=== PATIENT | female | born 1950 | race Caucasian/White ===

== ENCOUNTER 2020-03-03 11:15 | Day surgery (SDC) | payer MEDICARE ==
[~2020-03-03] VITALS: Ht 160 cm; Wt 105.7 kg
[2020-03-03 12:05] VITALS: BP 173/92
[2020-03-03] MEDS ORDERED: ZOLP10TA PO (12:16)
[2020-03-03] MEDS ORDERED: BIOT25005 PO (12:16)
[2020-03-03] MEDS ORDERED: FOLI-17 PO (12:16)
[2020-03-03] MEDS ORDERED: HYDR-3653 PO (12:16)
[2020-03-03] MEDS ORDERED: HYOS0.1282 PO (12:16)
[2020-03-03] MEDS ORDERED: CHOL10003 PO (12:16)
[2020-03-03] MEDS ORDERED: AZEL137S4 NAS (12:16)
[2020-03-03] MEDS ORDERED: LEVO137T3 PO (12:16)
[2020-03-03] MEDS ORDERED: BUSP15TA PO (12:16)
[2020-03-03] MEDS ORDERED: LOSA25TA25 PO (12:16)
[2020-03-03] MEDS ORDERED: FLUT1BLS INH (12:16)
[2020-03-03] MEDS ORDERED: CETI10TA76 PO (12:16)
[2020-03-03] MEDS ORDERED: ALBU8.5H8 INH (12:16)
[2020-03-03 12:30] LABS: ALANINE AMINOTRANSFERASE 27 U/L (12-78); ALBUMIN 4.3 g/dL (3.4-5.0); ANION GAP 5 mmol/L (5-15); CALCIUM 9.5 mg/dL (8.5-10.1); CHLORIDE 108 mmol/L (98-107); CREATININE 0.89 mg/dL (0.55-1.02)
[2020-03-03] MEDS ORDERED: CHLORHEXIDINE 15 ML UDC MM ONE (12:30)
[2020-03-03] MEDS ORDERED: LACTATED RINGERS 1,000 ML IV SCH (12:30)
[2020-03-03 12:32] LABS: ALKALINE PHOSPHATASE 109 U/L (45-117); BILIRUBIN,TOTAL 0.7 mg/dL (0.2-1.0); TOTAL PROTEIN 8.2 g/dL (6.4-8.2)
[2020-03-03] MEDS ORDERED: DEXAMETHASONE 4 MG/ML, 1ML ONE (14:25)
[2020-03-03] MEDS ORDERED: PROPOFOL 10 MG/ML, 20ML ONE (14:25)
[2020-03-03] MEDS ORDERED: SUCCINYLCHOLINE 20 MG/ML, 10ML ONE (14:25)
[2020-03-03] MEDS ORDERED: GLYCOPYRROLATE 0.2MG/1ML, 5ML ONE (14:25)
[2020-03-03] MEDS ORDERED: NEOSTIGMINE 1 MG/ML, 10ML ONE (14:25)
[2020-03-03] MEDS ORDERED: ONDANSETRON 2MG/ML, 2ML ONE (14:25)
[2020-03-03] MEDS ORDERED: PROMETHAZINE 25 MG/ML, 1ML IVPush PRN (14:30)
[2020-03-03] MEDS ORDERED: HALOPERIDOL 5 MG/ML IV PRN (14:30)
[2020-03-03] MEDS ORDERED: DIPHENHYDRAMINE 50 MG/ML, 1ML IVPush PRN (14:30)
[2020-03-03] MEDS ORDERED: FENTANYL PF 100 MCG/2ML IV PRN (14:30)
[2020-03-03] MEDS ORDERED: hydrALAzine 20 MG/ML, 1ML IV PRN (14:30)
[2020-03-03] MEDS ORDERED: LABETALOL 5MG/ML, 20ML IV PRN (14:30)
[2020-03-03] MEDS ORDERED: GADOTERATE 10 MMOL/20 ML VIAL ONE (15:44)
== END 2020-03-03 18:20 | disposition home or self-care (01) ==
LOC: RAD 11:15 → EDSTATUS 13:00 → RAD 18:20
PROVIDERS: ATTEND Otolaryngology
DX: G25.3 Myoclonus (principal); M48.02 Spinal stenosis, cervical region; M54.2 Cervicalgia; D32.9 Benign neoplasm of meninges, unspecified; M19.011 Primary osteoarthritis, right shoulder; M25.711 Osteophyte, right shoulder; M94.211 Chondromalacia, right shoulder; I10 Essential (primary) hypertension; G47.33 Obstructive sleep apnea (adult) (pediatric); E78.5 Hyperlipidemia, unspecified; G43.709 Chronic migraine without aura, not intractable, without status migrainosus; J45.909 Unspecified asthma, uncomplicated; E03.9 Hypothyroidism, unspecified; Z20.828 Contact with and (suspected) exposure to other viral communicable diseases; Z88.8 Allergy status to other drugs, medicaments and biological substances; Z79.899 Other long term (current) drug therapy; Z98.890 Other specified postprocedural states; Z79.891 Long term (current) use of opiate analgesic
CPT/HCPCS: 36415; 70543; 70553; 72141; 73221; 80053; A9575; J0330; J1100; J2405; J2704; J2710; J7120; U0003